=== PATIENT | female | born 1965 | race American Indian/Alaskan Native ===

== ENCOUNTER 2019-11-26 20:20 | Emergency (ER) | payer BC ==
--- NOTE | 2019-11-26 21:53 | Event Note ---
ED Screening Note ED Screening Note: right flank pain that began a few days ago states at first felt like pulled muscle no N/v/D no urinary sx no fever PMHx none allergy: PCN, sulfa, hydrocodone went through menopause This initial assessment/diagnostic orders/clinical plan/treatment(s) is/are subject to change based on patients health status, clinical progression and re- assessment by fellow clinical providers in the ED. Further treatment and workup at subsequent clinical providers discretion. Patient/guardian urged not to elope from the ED as their condition may be serious if not clinically assessed and managed. Initial orders include: labs, UA
[2019-11-26 23:00] LABS: Basophils # (Auto) 0.1 K/mm3 (0.0-0.1); Basophils % (Auto) 1.2 % (0.0-1.8); Eosinophils # (Auto) 0.1 K/mm3 (0.0-0.4); Hematocrit 35.9 % (30.3-42.9); Hemoglobin 11.9 gm/dl (10.1-14.3); Lymphocytes # (Auto) 2.9 K/mm3 (1.2-5.4); Lymphocytes % (Auto) 37.8 % (13.4-35.0); Mean Corpuscular HGB Conc 33 % (30-34); Mean Corpuscular Volume 84 fl (79-97); Monocytes # (Auto) 0.6 K/mm3 (0.0-0.8); Monocytes % (Auto) 8.1 % (0.0-7.3); Platelet Count 258 K/mm3 (140-440); Red Blood Count 4.29 M/mm3 (3.65-5.03); Red Cell Distribution Width 13.7 % (13.2-15.2)
[2019-11-26 23:06] LABS: Bilirubin,Urine NEG (Negative); Blood,Urine SM (Negative); Color,Urine Yellow (Yellow); Mucus,Urine FEW /HPF; Protein,Urine <15 mg/dL mg/dL (Negative); Urobilinogen,Urine < 2.0 mg/dL (<2.0)
[2019-11-26 23:23] LABS: Alanine Aminotransferase 15 units/L (7-56); BUN/Creatinine Ratio 24; Blood Urea Nitrogen 19 mg/dL (7-17); Hemolysis Index 12
[2019-11-27] MEDS ORDERED: KETOROLAC 30 MG/1 ML INJ IV ONE (00:07)
--- NOTE | 2019-11-27 00:15 | Emergency Department Report ---
HPI - General Chief Complaint: Abdominal Pain Time Seen by Provider: 11/26/19 21:50 - HPI HPI: Room 40 The patient is a 54-year-old female presenting with a chief complaint of right flank pain. The patient states for the past 3 days she's had pain in the right ribs right flank, sneezing or deep inspiration. Patient denies shortness of breath or nausea/vomiting. Patient denies cough, fever dysuria or hematuria. Patient denies any recent flights or long car trips. Patient currently gives her pain a score of 8/10. Location: [See above] Duration: [See above] Quality: [See above] Severity: [See above] Timing: [See above] Context: [See above] Modifying factors: [See above] Associated signs and symptoms: [see above] Mode of transportation: The patient drove herself to the emergency department. She states her son's limousine driver's license is suspended ED Past Medical Hx - Past Medical History Previous Medical History?: No - Surgical History Past Surgical History?: Yes Additional Surgical History: Hysterectomy,Bilateral Foot Surgery, Ovarian Cyst - Family History Family history: no significant - Social History Smoking Status: Never Smoker Substance Use Type: None (denies illicit drug use) - Medications Home Medications: Home Medications Medication Instructions Recorded Confirmed Last Taken Type Cyclobenzaprine [Flexeril] 10 mg PO TID PRN #10 tablet 11/27/19 Unknown Rx Ibuprofen [Motrin 800 MG tab] 800 mg PO Q8HR PRN #20 tablet 11/27/19 Unknown Rx oxyCODONE /ACETAMINOPHEN [Percocet 1 - 2 tab PO Q6HR PRN #10 tablet 11/27/19 Unknown Rx 5/325] ED Review of Systems ROS: Stated complaint: UPPER BODY PAIN/PAIN IN BREATHING Other details as noted in HPI Constitutional: denies: fever Eyes: denies: eye pain ENT: denies: throat pain Respiratory: other (pleurisy). denies: shortness of breath Cardiovascular: denies: chest pain Endocrine: no symptoms reported Gastrointestinal: abdominal pain. denies: nausea, vomiting Genitourinary: denies: dysuria, hematuria Musculoskeletal: back pain Neurological: denies: headache Physical Exam - Physical Exam Vital Signs: Vital Signs 11/26/19 20:32 Temperature 97.7 F Pulse Rate 69 Respiratory 18 Rate Blood Pressure 128/70 O2 Sat by Pulse 98 Oximetry Physical Exam: GENERAL: The patient is well-developed well-nourished female lying on stretcher appearing to be in moderate discomfort. [] HEENT: Normocephalic. Atraumatic. Extraocular motions are intact. Patient has moist mucous membranes. NECK: Supple. Trachea midline CHEST/LUNGS: Clear to auscultation. There is no respiratory distress noted. HEART/CARDIOVASCULAR: Regular. There is no tachycardia. There is no gallop rub or murmur. ABDOMEN: Abdomen is soft, nontender. Patient has normal bowel sounds. There is no abdominal distention. SKIN: There is no rash. There is no edema. There is no diaphoresis. NEURO: The patient is awake, alert, and oriented. The patient is cooperative. The patient has normal speech MUSCULOSKELETAL: There is no CVA tenderness. There is no evidence of acute injury. ED Course Vital Signs 11/26/19 20:32 Temperature 97.7 F Pulse Rate 69 Respiratory 18 Rate Blood Pressure 128/70 O2 Sat by Pulse 98 Oximetry ED Medical Decision Making - Lab Data Result diagrams: 11/26/19 22:29 11/26/19 22:29 - Radiology Data Radiology results: report reviewed (CT chest, CT abdomen and pelvis), image reviewed (CT chest, CT abdomen and pelvis) [facility] [address] [place] [address] Cat Scan Report Signed Patient: NAOMI BEAR MR# : [id number] : 1965 Acct:[id number] Age/Sex: 54 / F ADM Date: 11/26/19 Loc: ED Attending Dr: Ordering Physician: ZHANNA MEZA MD Date of Service: 11/27/19 Procedure(s): CT angio chest Accession Number(s): [id number] cc: ZHANNA MEZA MD CT ANGIOGRAPHY OF THE CHEST WITH INTRAVENOUS CONTRAST AND MULTIPLANAR MIP RECONSTRUCTIONS INDICATION / CLINICAL INFORMATION: Pleurisy and right back pain. TECHNIQUE: Axial CT images were obtained after injection of 100 cc Omnipaque 350 IV contrast using CTA protocol. 3 plane MIP / 3D reconstructions were produced. All CT scans at this location are performed using CT dose reduction for ALARA by means of automated exposure control. COMPARISON: None available. FINDINGS: There is good opacification of the pulmonary arterial system bilaterally without intraluminal filling defect to suggest acute PTE. The thoracic aorta is normal in caliber without dissection. No coronary artery calcification is seen. The tracheobronchial tree is normal. The lung parenchyma is clear. There is no evidence of adenopathy or effusion. The visualized upper abdomen is normal. There is cervical spondylosis. No acute osseous abnormality is identified. IMPRESSION: No evidence of acute PTE. Signer Name: William Craven MD Signed: 11/27/2019 1:07 AM Workstation Name: [id number] Transcribed By: RT Dictated By: William Craven MD Electronically Authenticated By: William Craven MD Signed Date/Time: 11/27/19106 DD/ 4 TD/TT: [facility] [address] [place] [address] Cat Scan Report Signed Patient: NAOMI BEAR MR# : [id number] : 1965 Acct:[id number] Age/Sex: 54 / F ADM Date: 11/26/19 Loc: ED Attending Dr: Ordering Physician: ZHANNA MEZA MD Date of Service: 11/27/19 Procedure(s): CT abdomen pelvis w con Accession Number(s): [id number] cc: ZHANNA MEZA MD CT OF THE ABDOMEN AND PELVIS WITH INTRAVENOUS CONTRAST INDICATION / CLINICAL INFORMATION: Right flank pain. TECHNIQUE: The patient received 100 cc Omnipaque [address] scans at this location are performed using CT dose reduction for ALARA by means of automated exposure control. COMPARISON: None available. FINDINGS: ABDOMEN: The liver, spleen, gallbladder, bile ducts, pancreas, adrenal glands and bowel are normal. There are bilateral simple renal cysts, the largest of which measures 1.4 cm in the right kidney and 1.6 cm in the left kidney. No adenopathy is seen. The lung bases are clear. PELVIS: The distal ureters and urinary bladder are normal. The uterus and ovaries are not identified. A normal appendix is present and there is no evidence of diverticulitis. I do not identify a hernia. There are numerous subcutaneous nodules involving the fat throughout the pelvis bilaterally. The findings are more prominent laterally and posteriorly. There is also associated soft tissue stranding, greater on the right. There is advanced degenerative disc disease at L4-5. IMPRESSION: 1. No acute intra-abdominal disease is identified. 2. Extensive nonspecific nodularity and soft tissue stranding involving the subcutaneous fat of the pelvis bilaterally, most prominent laterally and posteriorly. Signer Name: William Craven MD Signed: 11/27/2019 1:16 AM Workstation Name: [id number] Transcribed By: RT Dictated By: William Craven MD Electronically Authenticated By: William Craven MD Signed Date/Time: 11/27/19115 DD/ 9 TD/TT: - Differential Diagnosis renal colic, PE, pleurisy, symptomatic cholelithiasis, pyelonephritis Critical care attestation.: If time is entered above; I have spent that time in minutes in the direct care of this critically ill patient, excluding procedure time. ED Disposition Clinical Impression: Acute right flank pain Disposition: TO HOME OR SELFCARE Is pt being admited?: No Does the pt Need Aspirin: No Condition: Stable Instructions: Abdominal Pain (ED) Additional Instructions: Return to the emergency department should you develop worsening symptoms, inability to tolerate food or liquids, high fever or any other concerns Prescriptions: Cyclobenzaprine [Flexeril] 10 mg PO TID PRN #10 tablet PRN Reason: Muscle Spasm Ibuprofen [Motrin 800 MG tab] 800 mg PO Q8HR PRN #20 tablet PRN Reason: Pain, Moderate (4-6) oxyCODONE /ACETAMINOPHEN [Percocet 5/325] 1 - 2 tab PO Q6HR PRN #10 tablet PRN Reason: Pain Referrals: PETTY JASSO MD [Staff Physician] - 3-5 Days Time of Disposition: 01:30
--- NOTE | 2019-11-27 01:12 | Cat Scan Report ---
CT ANGIOGRAPHY OF THE CHEST WITH INTRAVENOUS CONTRAST AND MULTIPLANAR MIP RECONSTRUCTIONS INDICATION / CLINICAL INFORMATION: Pleurisy and right back pain. TECHNIQUE: Axial CT images were obtained after injection of 100 cc Omnipaque 350 IV contrast using CTA protocol. 3 plane MIP / 3D reconstructions were produced. All CT scans at this location are performed using CT dose reduction for ALARA by means of automated exposure control. COMPARISON: None available. FINDINGS: There is good opacification of the pulmonary arterial system bilaterally without intraluminal filling defect to suggest acute PTE. The thoracic aorta is normal in caliber without dissection. No coronary artery calcification is seen. The tracheobronchial tree is normal. The lung parenchyma is clear. There is no evidence of adenopathy or effusion. The visualized upper abdomen is normal. There is cervical spondylosis. No acute osseous abnormality is identified. IMPRESSION: No evidence of acute PTE. Signer Name: William Craven MD Signed: 11/27/2019 1:07 AM Workstation Name: [id number]
--- NOTE | 2019-11-27 01:21 | Cat Scan Report ---
CT OF THE ABDOMEN AND PELVIS WITH INTRAVENOUS CONTRAST INDICATION / CLINICAL INFORMATION: Right flank pain. TECHNIQUE: The patient received 100 cc Omnipaque [address] scans at this location are performed using CT dose reduction for ALARA by means of automated exposure control. COMPARISON: None available. FINDINGS: ABDOMEN: The liver, spleen, gallbladder, bile ducts, pancreas, adrenal glands and bowel are normal. T here are bilateral simple renal cysts, the largest of which measures 1.4 cm in the right kidney and 1 .6 cm in the left kidney. No adenopathy is seen. The lung bases are clear. PELVIS: The distal ureters and urinary bladder are normal. The uterus and ovaries are not identified. A normal appendix is present and there is no evidence of diverticulitis. I do not identify a hernia. There are numerous subcutaneous nodules involving the fat throughout the pelvis bilaterally. The find ings are more prominent laterally and posteriorly. There is also associated soft tissue stranding, gr eater on the right. There is advanced degenerative disc disease at L4-5. IMPRESSION: 1. No acute intra-abdominal disease is identified. 2. Extensive nonspecific nodularity and soft tissue stranding involving the subcutaneous fat of the p jordana bilaterally, most prominent laterally and posteriorly. Signer Name: William Craven MD Signed: 11/27/2019 1:16 AM Workstation Name: [id number]
[2019-11-27 01:48] VITALS: BP 120/60
== END 2019-11-27 01:48 | disposition home or self-care (01) ==
LOC: ED 20:20
DX: R10.9 Unspecified abdominal pain (principal); Z90.710 Acquired absence of both cervix and uterus; Z79.899 Other long term (current) drug therapy; Z88.0 Allergy status to penicillin; Z88.8 Allergy status to other drugs, medicaments and biological substances
CPT/HCPCS: 36415; 71275; 74177; 80053; 81001; 85025; 96374; 99284; J1885; Q9967